=== PATIENT | male | born 1975 | race Caucasian/White ===

== ENCOUNTER → 2016-10-03 | Outpatient (CLI) | payer BC ==
[~2016-10-03] MED LIST: METFORMIN HCL1000 MG PO; TANZEUM30 MG SC
[2016-10-03 08:55] LABS: BUN 15 mg/dL (7-18)
[2016-10-03 09:05] LABS: GFR (ESTIMATED) 82 ML/MIN (>60)
== END ==
LOC: LAB 07:41
PROVIDERS: Internal Medicine Adolescent Medicine
DX: E11.9 Type 2 diabetes mellitus without complications (principal)

== ENCOUNTER → 2017-08-03 | Outpatient (CLI) | payer BC | LOC: SL 16:22 | DX: G47.8 Other sleep disorders (principal) | CPT/HCPCS: G0399-TC ==